=== PATIENT | female | born 1985 | race Caucasian/White ===

== ENCOUNTER 2024-07-01 03:29 | Emergency (ER) | payer MEDICARE, MEDICAID ==
[~2024-07-01] VITALS: Ht 165.1 cm; Wt 82.0 kg
[2024-07-01 04:01] VITALS: O2SAT 98
[2024-07-01] MEDS: HYDROCODONE/ACETAMINOPHEN 7.5/325MG TABLET PO ONE (04:56)
[2024-07-01] MEDS ORDERED: IBUP-2029 MT (06:40)
[2024-07-01] MEDS ORDERED: TOPUD MT (06:40)
[2024-07-01 06:51] VITALS: BP 90/54; PULSE 75; RESP 17; TEMP 37; O2SAT 97
== END 2024-07-01 06:51 | disposition home or self-care (01) ==
LOC: ER 04:36
DX: S42.211A Unspecified displaced fracture of surgical neck of right humerus, initial encounter for closed fracture (principal); X58.XXXA Exposure to other specified factors, initial encounter; Y93.89 Activity, other specified; Y92.89 Other specified places as the place of occurrence of the external cause; Y99.8 Other external cause status
CPT/HCPCS: 73030; 73060; 99284; A4565